=== PATIENT | male | born 1970 | race Two or more races ===

== ENCOUNTER 2019-03-29 11:24 | Emergency (ER) | payer OTHER ==
[~2019-03-29] VITALS: Ht 175.3 cm; Wt 103.9 kg
[2019-03-29 11:28] VITALS: BP 139/78
== END 2019-03-29 11:42 | disposition home or self-care (01) ==
LOC: ER 11:25
DX: L03.116 Cellulitis of left lower limb (principal); L03.115 Cellulitis of right lower limb; F12.10 Cannabis abuse, uncomplicated
CPT/HCPCS: 82962-TC

== ENCOUNTER 2019-04-29 14:49 | Inpatient (IN) | payer OTHER ==
[~2019-04-29] VITALS: Ht 175.3 cm; Wt 104.3 kg
[2019-04-29] MEDS ORDERED: IV NS 0.9% 1,000 ML BAG IV ONE (16:00)
[2019-04-29] MEDS ORDERED: ACETAMINOPHEN 325 MG TABLET PO ONE (16:00)
[2019-04-29] MEDS ORDERED: ACETAMINOPHEN ES 500 MG TABLET ONE (16:06)
--- NOTE | 2019-04-29 16:25 | NUR ---
"Pain on Right leg xcouple days worse now. Body ache/fever". PT AAOX4, VSS. RR EVEN & UNLABORED. DENIES CP, SOB, DIZZINESS, N/V, WEAKNESS @ THIS TIME. PT SEEN & EVAL'D BY DR. AGUILAR. MEDICATED ORDERED. WILL CONT TO MONITOR.
[2019-04-29] MEDS ORDERED: MORPHINE SULFATE INJ 2 MG/ML DISP.SYRIN IV ONE (16:30)
[2019-04-29] MEDS ORDERED: VANCOMYCIN HCL 1 GM in IV D5W 260 ML IV ONE (16:30)
[2019-04-29 16:44] LABS: BASOPHILS % (AUTO) 0.1 % (0.0-2.0); HEMATOCRIT 45 % (39-51); HEMOGLOBIN 15.2 g/dL (13.5-17.5); LYMPHOCYTES # (AUTO) 1.1 /CMM (0.8-4.8); LYMPHOCYTES % (AUTO) 4.2 % (20.0-44.0); MEAN CORPUSCULAR HGB CONC 34 g/dl (31.0-36.0); MEAN CORPUSCULAR VOLUME 93 fL (80-96); MONOCYTES # (AUTO) 1.9 /CMM (0.1-1.30); MONOCYTES % (AUTO) 7.1 % (2.0-12.0); NEUTROPHILS # (AUTO) 24.1 /CMM (1.8-8.9); NEUTROPHILS % (AUTO) 88.6 % (43.0-81.0); PLATELET COUNT (AUTO) 401 /CMM (150-450); RED BLOOD CELL COUNT(AUTO) 4.87 MIL/uL (4.5-6.0); WHITE BLOOD COUNT (AUTO) 27.2 K/uL (4.3-11.0)
--- NOTE | 2019-04-29 16:56 | NUR ---
CALLED [facility].
[2019-04-29 16:58] LABS: CALCIUM, SERUM 8.6 mg/dL (8.5-10.1); CREATININE 1.2 mg/dL (0.6-1.3); POTASSIUM 3.8 mmol/L (3.5-5.1)
[2019-04-29] MEDS ORDERED: FURO-145 PO (17:13)
[2019-04-29] MEDS ORDERED: SPIR25TA PO (17:13)
[2019-04-29] MEDS ORDERED: MORPHINE SULFATE INJ 4 MG/ML DISP.SYRIN ONE (17:42)
--- NOTE | 2019-04-29 17:45 | NUR ---
MEDICATED FOR PAIN PER ERMD ORDER, PT STEFANIE WELL.
--- NOTE | 2019-04-29 17:53 | NUR ---
NURSING SUP GAVE [phone].
[2019-04-29] MEDS ORDERED: MAG HYDROX/AL HYDROX/SIMETH 30 ML UDC PO PRN (18:00)
[2019-04-29] MEDS ORDERED: Z GUARD REMEDY 2 OZ OINT TP PRN (18:00)
[2019-04-29] MEDS ORDERED: MAGNESIUM HYDROXIDE 30 ML UDC PO PRN (18:00)
[2019-04-29] MEDS ORDERED: ZOLPIDEM TARTRATE 5 MG TABLET PO PRN (18:00)
[2019-04-29] MEDS ORDERED: ACETAMINOPHEN 325 MG TABLET PO PRN (18:00)
[2019-04-29] MEDS ORDERED: ONDANSETRON HCL/PF 4 MG/2 ML VIAL IVP PRN (18:00)
--- NOTE | 2019-04-29 18:04 | NUR ---
NURSING SUP GAVE [phone].
[2019-04-29] MEDS ORDERED: FEE PK DOSING 1 MIN EA MC ONE (18:37)
--- NOTE | 2019-04-29 19:18 | NUR ---
REPORT GIVEN TO VIKAS COBB FOR ROBI.
[2019-04-29 19:30] VITALS: BP 104/66
--- NOTE | 2019-04-29 19:40 | NUR ---
GENERAL ASSISTANTHEBREW PROFESSOR NOTES RECEIVED REPORT FROM JORDYN BEAN AT 1910. PATIENT TRANSFERRED FROM ER VIA [facility]URYEA AT 1930. A/O X 4. PATIENT ABLE TO VERBALIZE NEEDS. ON ROOM AIR. TELE MONITOR READING SINUS TACH, HEART RATE 101. RIGHT LEG SWOLLEN, NON-PITTING, PICTURES TAKEN AND PLACED IN CHART. BELONGINGS LIST SIGNED AND PLACED IN CHART. PATIENT STATES THAT HE DOES NOT TAKE ANY HOME MEDS. IV PRESENT ON RIGHT FOREARM, SIZE 20, INTACT & PATENT. VITAL SIGNS - BP: 104/66 HR: 98 RR: 20 TEMP: 98.2 SPO2: 99. BED LOCKED, SEMI-FAJARDO'S POSITION, SIDE RAILS X2, CALL LIGHT WITHIN REACH. WILL CONTINUE TO MONITOR.
[2019-04-29 20:00] VITALS: BP 104/66
[2019-04-29] MEDS: CEFTRIAXONE 1 G in IV D5W 50 ML IV SCH (21:16)
[2019-04-29] MEDS: ENOXAPARIN SODIUM 40 MG/0.4 ML DISP.SYRIN SQ SCH (21:34)
[2019-04-29 23:50] VITALS: BP 117/67
[2019-04-29] MEDS: HYDROCODONE/APAP 5/325MG 1 EACH TABLET PO PRN (23:50)
--- NOTE | 2019-04-29 23:50 | NUR ---
DAY WORKER NOTES PATIENT COMPLAINING OF RIGHT LEG PAIN RATED 5/10. PER PATIENT'S REQUEST, ADMINISTERED 1 TAB OF NORCO 5/325. VITAL SIGNS - BP: 117/67 HR: 101 RR: 20. CALL LIGHT WITHIN REACH. WILL CONTINUE TO MONITOR.
[2019-04-30] VITALS (7 sets, daily range): BP systolic 106–131; BP diastolic 56–78
[2019-04-30] MEDS: MORPHINE SULFATE INJ 2 MG/ML DISP.SYRIN IV PRN (04:33)
[2019-04-30] MEDS: VANCOMYCIN 1.25 GM in IV D5W 250 ML IV SCH ×2 (06:05→17:46)
--- NOTE | 2019-04-30 06:38 | NUR ---
DOLL SURGEON CLOSING NOTES PATIENT SLEEPING IN BED, EASY TO AWAKEN. A/O X4. ON ROOM AIR. NO S/S OF ACUTE RESPIRATORY DISTRESS AND NO COMPLAINTS OF PAIN AT THIS TIME. TELE MONITOR READING SINUS RHYTHM, HEART RATE 98. IV PRESENT ON RIGHT FOREARM, SIZE 20, INTACT & PATENT WITH IVPB ZANCOMYCIN RUNNING AT 125ML/HR. BED LOCKED, SEMI-FAJARDO'S POSITION, SIDE RAILS X2, CALL LIGHT WITHIN REACH. WILL ENDORSE TO DAY SHIFT NURSE TO FOLLOW PLAN OF CARE.
--- NOTE | 2019-04-30 07:00 | NUR ---
Tele/RN Opening Note Received patient in bed, AO x 4, able to responds all stimuli. Pt. does no appears pain or any discomfort. Skin is warm to touch, clean/dry. Kept lower bed of position with elevated HOB. No s/s of respiratory distress. Will continue to monitor.
[2019-04-30 07:19] LABS: BASOPHILS % (AUTO) 0.2 % (0.0-2.0); EOSINOPHILS % (AUTO) 0.2 % (0.0-6.0); HEMATOCRIT 42 % (39-51); HEMOGLOBIN 14.2 g/dL (13.5-17.5); LYMPHOCYTES # (AUTO) 1.4 /CMM (0.8-4.8); LYMPHOCYTES % (AUTO) 8.5 % (20.0-44.0); MEAN CORPUSCULAR HGB CONC 34 g/dl (31.0-36.0); MEAN CORPUSCULAR VOLUME 92 fL (80-96); MONOCYTES # (AUTO) 2.2 /CMM (0.1-1.30); MONOCYTES % (AUTO) 13.4 % (2.0-12.0); NEUTROPHILS # (AUTO) 12.6 /CMM (1.8-8.9); NEUTROPHILS % (AUTO) 77.7 % (43.0-81.0); PLATELET COUNT (AUTO) 318 /CMM (150-450); RED BLOOD CELL COUNT(AUTO) 4.59 MIL/uL (4.5-6.0); WHITE BLOOD COUNT (AUTO) 16.2 K/uL (4.3-11.0)
[2019-04-30 07:47] LABS: ALBUMIN 2.6 g/dL (3.4-5.0); BILIRUBIN,TOTAL 1.2 mg/dL (0.2-1.0); CALCIUM, SERUM 8.3 mg/dL (8.5-10.1); CREATININE 1.1 mg/dL (0.6-1.3); MAGNESIUM 1.5 mg/dL (1.8-2.4); PHOSPHORUS 2.1 mg/dL (2.5-4.9); POTASSIUM 3.6 mmol/L (3.5-5.1)
[2019-04-30] MEDS ORDERED: K PHOS NEUTRAL 250 MG TABLET PO ONE (12:30)
[2019-04-30] MEDS: Magnesium 1GM/D5W 100ML PREMIX 100 ML IV SCH ×2 (12:48→15:56)
[2019-04-30] MEDS ORDERED: GUAIFENESIN/CODEINE 10 ML UDC PO PRN (13:30)
--- NOTE | 2019-04-30 18:30 | NUR ---
MS/RN Closing Note Patient in bed comfortably, noticed fever >100, given Tylenol and ice pack and decreased temp 99.6. No s/s of respiratory distress, kept lower bed position with elevated HOB. Skin is warm to touch, clean/dry, intact IV site. Call light within reach, will endorse maintenance supervisor 2nd shift.
[2019-04-30] MEDS: HYDROCODONE/APAP 5/325MG 1 EACH TABLET PO PRN (19:02)
--- NOTE | 2019-04-30 19:30 | NUR ---
MS RN OPENING NOTES PATIENT SLEEPING IN BED UPON ARRIVAL, EASY TO AWAKEN. A/O X 4. ON ROOM AIR. NO S/S OF SOB AND NO COMPLAINTS OF PAIN AT THIS TIME. IV PRESENT ON RIGHT FOREARM, SIZE 20, INTACT & PATENT. BED LOCKED, SIDE RAILS X2, CALL LIGHT WITHIN REACH. WILL CONTINUE TO MONITOR.
[2019-04-30] MEDS: ENOXAPARIN SODIUM 40 MG/0.4 ML DISP.SYRIN SQ SCH (20:33)
[2019-04-30] MEDS: CEFTRIAXONE 1 G in IV D5W 50 ML IV SCH (20:34)
[2019-05-01] MEDS: MORPHINE SULFATE INJ 2 MG/ML DISP.SYRIN IV PRN ×4 (03:47→18:04)
[2019-05-01] MEDS: VANCOMYCIN 1.25 GM in IV D5W 250 ML IV SCH ×2 (06:13→18:04)
[2019-05-01] MEDS: HYDROCODONE/APAP 5/325MG 1 EACH TABLET PO PRN ×2 (06:23→15:23)
--- NOTE | 2019-05-01 06:57 | NUR ---
MS RN CLOSING NOTES PATIENT AWAKE AND RESTING IN BED. A/O X4. ON ROOM AIR. NO S/S OF SOB. PATIENT RECEIVED PRN NORCO 5/325 AT 0623 FOR PAIN RATED 7/10. IV PRESENT ON RIGHT FOREARM, SIZE 20, INTACT & PATENT WITH IVPB VANCO RUNNING AT 125 CC/HR. BED LOCKED, SIDE RAILS X2, CALL LIGHT WITHIN REACH. WILL ENDORSE TO DAY SHIFT NURSE TO FOLLOW PLAN OF CARE.
--- NOTE | 2019-05-01 07:54 | NUR ---
MS/RN OPENING NOTES RECEIVED PATIENT AWAKE AND RESTING IN BED. A/O X4. ON ROOM AIR. NO S/S OF SOB. PATIENT COMPLAINED OF PAIN RATED 7/10. IV PRESENT ON RIGHT FOREARM, SIZE 20, INTACT & PATENT WITH IVPB VANCO RUNNING AT 125 CC/HR. BED IN LOWEST POSITION. BED LOCKED, SIDE RAILS UP X2, CALL LIGHT WITHIN REACH. WILL CONTINUE TO MONITOR.
[2019-05-01 08:00] VITALS: BP 115/70
[2019-05-01 09:41] LABS: ALBUMIN 2.5 g/dL (3.4-5.0); BILIRUBIN,DIRECT 0.2 mg/dL (0.0-0.2); BILIRUBIN,TOTAL 0.6 mg/dL (0.2-1.0); TOTAL PROTEIN, SERUM 7.4 g/dL (6.4-8.2)
[2019-05-01 09:56] LABS: CALCIUM, SERUM 8.5 mg/dL (8.5-10.1); MAGNESIUM 2.1 mg/dL (1.8-2.4); PHOSPHORUS 3.2 mg/dL (2.5-4.9); POTASSIUM 3.8 mmol/L (3.5-5.1)
--- NOTE | 2019-05-01 15:52 | NUR ---
MS/RN NOTES PER PT FWW ON DISCHARGE.
[2019-05-01 16:00] VITALS: BP 111/59
--- NOTE | 2019-05-01 18:57 | NUR ---
MS/RN CLOSING NOTES PATIENT IS ALERT AND ORIENTED X4. NO RESPIRATORY DISTRESS AT THIS TIME. STILL ON IN OFF OF PAIN X6. KEPT PATIENT CLEAN AND DRY THE WHOLE TIME. SEEN AND EXAMINED BY MD WITH ORDERS AND CARRIED OUT. BED IN LOWEST POSITION, SIDE RAILS UP X2. CALL LIGHTS WITHIN REACH. PT EVAL WAS DONE AND RECOMMEND FOR FWW ON DISCHARGE AND NOTED. WILL ENDORSED TO DISASTER RECOVERY COORDINATOR FOR CONTINUITY OF CARE.
[2019-05-01 20:00] VITALS: BP 147/89
[2019-05-01] MEDS: CEFTRIAXONE 1 G in IV D5W 50 ML IV SCH (20:16)
--- NOTE | 2019-05-01 20:40 | NUR ---
MS/RN OPENING NOTES RECEIVED PATIENT ASLEEP, BUT EASILY AROUSES, PAIN MEDICATION GIVEN PRIOR TO START OF CARE BY AM RN, PATIENT ABLE TO VERBALIZE NEEDS, ON ROOM AIR, RESPIRATIONS EVEN AND UNLABORED, BED LOCKED, CALL LIGHTS WITHIN REACH , IV ON RFA IV PATENT, WILL MONITOR FOR ANY CHANGES. BED LOCKED, CALL LIGHTS WITHIN REACH. WILL MONITOR.
[2019-05-01] MEDS: ENOXAPARIN SODIUM 40 MG/0.4 ML DISP.SYRIN SQ SCH (23:01)
[2019-05-02] MEDS: VANCOMYCIN 1.25 GM in IV D5W 250 ML IV SCH ×2 (05:00→17:31)
[2019-05-02] MEDS: MORPHINE SULFATE INJ 2 MG/ML DISP.SYRIN IV PRN ×3 (05:41→19:58)
--- NOTE | 2019-05-02 05:44 | NUR ---
ms/rn notes PAIN GENERALIZED ON BODY WITH SEVERE PAIN, MOANING AND GRINACE, NEEDED MORPHINE IV 2 MG GIVEN. MONITORING RELIEF.
--- NOTE | 2019-05-02 06:55 | NUR ---
324MS/RN NOTES CLOSING NOTED PATIEMT ABLE TO SLEEP, BED LOCKED,, ABLE TO REPOSITION BRIAN, SELF MOTIVATED. WILL ENDORSE TO AM RN FOR ROBI.
[2019-05-02 08:00] VITALS: BP 146/90
--- NOTE | 2019-05-02 08:00 | NUR ---
MS/RN Patient received Patient received from mobility manager. Sleeping soundly at this time, appears in no distress or discomfort. Right leg elevated on pillows to help relieve swelling. Call light within reach, will continue to monitor and ensure safety.
[2019-05-02 08:20] LABS: CALCIUM, SERUM 8.1 mg/dL (8.5-10.1); CREATININE 0.9 mg/dL (0.6-1.3); POTASSIUM 3.7 mmol/L (3.5-5.1)
--- NOTE | 2019-05-02 09:08 | NUR ---
MS/ RN S/B Dr Cobos Seen by MD - for discharge tomorrow with prescription for oral antibiotics.
[2019-05-02 09:13] LABS: BASOPHILS % (AUTO) 0.3 % (0.0-2.0); EOSINOPHILS % (AUTO) 1.9 % (0.0-6.0); HEMATOCRIT 42 % (39-51); HEMOGLOBIN 14.4 g/dL (13.5-17.5); LYMPHOCYTES # (AUTO) 1.5 /CMM (0.8-4.8); LYMPHOCYTES % (AUTO) 14.6 % (20.0-44.0); MEAN CORPUSCULAR HGB CONC 34 g/dl (31.0-36.0); MEAN CORPUSCULAR VOLUME 92 fL (80-96); MONOCYTES # (AUTO) 1.3 /CMM (0.1-1.30); MONOCYTES % (AUTO) 12.3 % (2.0-12.0); NEUTROPHILS # (AUTO) 7.5 /CMM (1.8-8.9); NEUTROPHILS % (AUTO) 70.9 % (43.0-81.0); PLATELET COUNT (AUTO) 395 /CMM (150-450); WHITE BLOOD COUNT (AUTO) 10.5 K/uL (4.3-11.0)
--- NOTE | 2019-05-02 12:30 | NUR ---
MS/RN Diet Per patient request, diet has been changed to double portions.
--- NOTE | 2019-05-02 14:45 | NUR ---
MS/RN Pain Complaining of pain 7/10 to bilateral lower extremities, morphine 2mg administered as ordered. Will monitor effectiveness.
[2019-05-02 16:00] VITALS: BP_SYST 105; BP_SYST 140; BP_DIAS 60; BP_DIAS 63
--- NOTE | 2019-05-02 18:00 | NUR ---
MS/RN Vancomycin Vancomycin hung as ordered, no level due
--- NOTE | 2019-05-02 18:07 | NUR ---
MS/RN End note Patient remains in stable condition. No new concerns at this time. All needs attended, will endorse to assembler 1st shift.
[2019-05-02 20:00] VITALS: BP 145/83
--- NOTE | 2019-05-02 20:00 | NUR ---
MS/RN OPENING NOTES RECEIVED PATIENT IN BED, AWAKE, ALERT X3, REPORTED SEVERE PAIN IN BILATERAL LOWER ANKLES OF 7/110, RESPIRATIONS EVEN AND UNLABORED, SKIN WARM TO TOUCH, ABLE TO VERBALIZE NEEDS, USES URINAL. WITH WALKER. BED LOCKED .CALL LIGHTS WITHIN REACH, IV P MORPHINE 2 MG ADMINISTERED WILL MONITOR RELIEF. PROVIDE COMFORT MEASURES.
[2019-05-02] MEDS: CEFTRIAXONE 1 G in IV D5W 50 ML IV SCH (20:03)
[2019-05-02] MEDS: ENOXAPARIN SODIUM 40 MG/0.4 ML DISP.SYRIN SQ SCH (22:27)
--- NOTE | 2019-05-02 22:32 | NUR ---
ms/rn notes PATIENT STILL IN PAIN FOR BREAK THROUGH PAIN REQUESTING NORCO PO.
[2019-05-02] MEDS: HYDROCODONE/APAP 5/325MG 1 EACH TABLET PO PRN (22:35)
--- NOTE | 2019-05-02 23:39 | NUR ---
ms/rn PATIENT WITH UPSET STOMACH REQUESTING MAALOX.
--- NOTE | 2019-05-02 23:40 | NUR ---
MS/RN NOTES REPORT GIVEN TO CHARGE NURSE GENARO FOR ROBI.
--- NOTE | 2019-05-03 01:30 | NUR ---
MSRN NO FURTHER COMPLAINTS MADE WENT BACK TO SLEEP. KEPT COMFORTABLE.
[2019-05-03] MEDS: VANCOMYCIN 1.25 GM in IV D5W 250 ML IV SCH (05:54)
--- NOTE | 2019-05-03 06:47 | NUR ---
MSRN REMAINS STABLE, ALL NEEDS ATTENDED.
--- NOTE | 2019-05-03 07:53 | NUR ---
MS RN OPENING NOTES RECEIVED PATIENT IN BED, ASLEEP. PATIENT ON ROOM AIR BREATHING EVENLY WITH NO SIGNS OF DISTRESS OR SOB. LFA SL GAUGE # 22 PRESENT, INTACT AND FLUSHING WELL. SAFETY PRECAUTIONS IN PLACE: BED IN LOW POSITION AND LOCKED, RAILS UP X2, CALL LIGHT WITHIN REACH. WILL CONTINUE TO MONITOR PATIENT.
[2019-05-03 08:00] VITALS: BP 123/71
[2019-05-03 08:36] LABS: CALCIUM, SERUM 8.5 mg/dL (8.5-10.1)
[2019-05-03] MEDS ORDERED: CLIN300C11 PO (09:49)
--- NOTE | 2019-05-03 10:05 | NUR ---
WOUND CARE CONSULT: PT PRESENTS WITH VERY RED LOWER LEGS WITH SCABS, PRESENT ON ADMISSION. PT STATES THAT HE BURNED HIS LEGS BUT HE WOULD NOT OPEN HIS EYES. RECOMMEND DPM CONSULT. PT IS CONTINENT AND INDEPENDENT WITH BED MOBILITY AT THIS TIME. WILL SEE PRN. BARNES IN AGREEMENT WITH PLAN OF CARE. CURRENT HENIR SCORE IS 19. Addendum: 05/03/19 at 1007 by EDITH BRAUN WNDNU Amended: Links added.
[2019-05-03] MEDS ORDERED: INFLUENZA VACCINE 2019-20 0.5 ML DISP.SYRIN IM ONE (13:00)
--- NOTE | 2019-05-03 18:54 | NUR ---
MS ASSISTANT TO THE CEO NOTES PATIENT DISCHARGED HOME AT LEFT THE UNIT AT 1530 ACCOMPANIED BY HIS MOTHER. PATIENT IN MEDICALLY STABLE CONDITION WITH DISCHARGE ORDERS AND DISCHARGE PAPERS. TEACHING REGARDING HIS CONDITION AND REGARDING DISCHARGE ORDERS AND F/U APPOINTMENTS PROVIDED TO BOTH; PATIENT AND MOTHER. BOTH VERBALIZED UNDERSTANDING. VALUABLE FORM AND DISCHARGE PAPERS SIGNED BY THE PATIENT. IV LINE AND WRIST BAND REMOVED BEFORE PATIENT LEFT THE FLOOR. PATIENT LEFT THE FLOOR VIA WHEELCHAIR ACCOMPANIED BY INSTRUCTIONAL TECHNOLOGIST.
[2019-05-04] MEDS ORDERED: SILVER SULFADIAZINE 50 GM JAR TP SCH (09:00)
== END 2019-05-03 16:00 | disposition home health service (06) | DRG 720 ==
LOC: ER 14:50 → MEDSG2 17:57 → TELE 19:48 → MED 04-30 09:25
PROVIDERS: ADMIT Internal Medicine; ATTEND Internal Medicine
DX: A41.9 Sepsis, unspecified organism (principal); J96.01 Acute respiratory failure with hypoxia; T24.301A Burn of third degree of unspecified site of right lower limb, except ankle and foot, initial encounter; T24.302A Burn of third degree of unspecified site of left lower limb, except ankle and foot, initial encounter; L03.115 Cellulitis of right lower limb; R65.20 Severe sepsis without septic shock; I10 Essential (primary) hypertension; R74.0 Nonspecific elevation of levels of transaminase and lactic acid dehydrogenase [LDH]; X08.8XXA Exposure to other specified smoke, fire and flames, initial encounter; Y93.9 Activity, unspecified; Y92.009 Unspecified place in unspecified non-institutional (private) residence as the place of occurrence of the external cause; M79.661 Pain in right lower leg
CPT/HCPCS: 36415; 71045-TC; 76700-TC; 80048-TC; 80053-TC; 80076-TC; 80202-TC; 83605-TC; 83735-TC; 84100-TC; 85025-TC; 87040-TC; 87081-TC; 93971-TC; 97116-TC; 97530-TC; G0378; J0696; J1650; J2270; J3370; J3475; J7040; J7050; J7060; Q2036

== ENCOUNTER 2020-11-26 15:08 | Emergency (ER) | payer OTHER ==
[~2020-11-26] VITALS: Ht 175.3 cm; Wt 104.3 kg
[~2020-11-26 15:08] MED LIST: CLIN300C12 PO; FURO-145 PO; SPIR25TA PO
--- NOTE | 2020-11-26 15:16 | NUR ---
BIBMOTHER FROM HOME TO ER BED 6. AAOX4. NOT IN RESP DISTRESS. CAME IN FOR L LOWER LEG PAIN, SWELLING, REDNESS WHICH PT THINKS THAT HE MIGHT HAVE BEEN BITTEN BY AN INSECT. SITE IS NOTED WARM TO TOUCH. PAIN IS RATED 10/10. PROVIDER WAS AT THE BEDSIDE FOR EVAL.
--- NOTE | 2020-11-26 15:42 | NUR ---
LAB AND US AT BEDSIDE
[2020-11-26 15:55] LABS: BASOPHILS % (AUTO) 0.3 % (0.0-2.0)
[2020-11-26 15:59] LABS: EOSINOPHILS % (AUTO) 2.1 % (0.0-6.0); HEMATOCRIT 47 % (39-51); LYMPHOCYTES # (AUTO) 1.1 K/uL (0.8-4.8); LYMPHOCYTES % (AUTO) 9.2 % (20.0-44.0); MEAN CORPUSCULAR HGB CONC 34 g/dl (31.0-36.0); MEAN CORPUSCULAR VOLUME 93 fL (80-96); MONOCYTES # (AUTO) 0.8 K/uL (0.1-1.30); MONOCYTES % (AUTO) 7.4 % (2.0-12.0); NEUTROPHILS # (AUTO) 9.2 K/uL (1.8-8.9); WHITE BLOOD COUNT (AUTO) 11.4 K/uL (4.3-11.0)
[2020-11-26] MEDS ORDERED: CLIN300C12 PO (16:29)
[2020-11-26] MEDS ORDERED: KETOROLAC TROMETHAMINE INJ 30 MG/ML VIAL IM ONE (16:30)
[2020-11-26] MEDS ORDERED: KETOROLAC TROMETHAMINE INJ 30 MG/ML VIAL ONE (16:41)
[2020-11-26] MEDS ORDERED: SULF1TAB48 PO ×2 (16:46)
[2020-11-26] MEDS ORDERED: CEPH500T PO (16:46)
[2020-11-26 16:52] LABS: PLATELET COUNT (AUTO) 12 K/uL (150-450)
[2020-11-26 17:03] LABS: BAND % (MANUAL) 1 % (0.0-5.0); EOSINOPHILS % (MANUAL) 1 % (0-4); LYMPHOCYTES % (MANUAL) 14 % (16-48); MONOCYTES % (MANUAL) 5 % (0-11.0); NEUTROPHILS % (MANUAL) 79 (42-76)
[2020-11-26] MEDS ORDERED: POLY15DR40 EACHEYE (17:40)
[2020-11-26 18:40] LABS: CALCIUM, SERUM 8.6 mg/dL (8.5-10.1); CARBON DIOXIDE 21 mmol/L (21-32); CHLORIDE 102 mmol/L (98-107); CREATININE 1.1 mg/dL (0.6-1.3); GLUCOSE 113 mg/dL (74-106); POTASSIUM 3.5 mmol/L (3.5-5.1); SODIUM SERUM 139 mmol/L (136-145); UREA NITROGEN, BLOOD 8 mg/dL (7-18)
--- NOTE | 2020-11-26 18:49 | NUR ---
WHILE INSERTING PT'S IV LINE. PT IS NOTED HOT TO TOUCH. CHECK TEMP. ORAL TEMP 101.6. PROVIDER MADE AWARE. ORDERS RECEIVED
[2020-11-26] MEDS ORDERED: CEFTRIAXONE 1GM BAG (ER ONLY) 50 ML IV ONE (18:54)
[2020-11-26] MEDS ORDERED: ACETAMINOPHEN ES 500 MG TABLET ONE (18:55)
[2020-11-26] MEDS ORDERED: IV NS 0.9% 1,000 ML BAG IV ONE (19:00)
[2020-11-26] MEDS ORDERED: IV NS 0.9% 1,000 ML IV ONE (19:00)
[2020-11-26] MEDS ORDERED: VANCOMYCIN HCL 1 GM in IV D5W 260 ML IV ONE (19:00)
[2020-11-26] MEDS ORDERED: ACETAMINOPHEN 325 MG TABLET PO ONE (19:00)
[2020-11-26] MEDS ORDERED: CEFTRIAXONE 1 G in IV D5W 50 ML IV ONE (19:00)
--- NOTE | 2020-11-26 19:07 | NUR ---
AWAITING AUTH FROM INSURANCE
--- NOTE | 2020-11-26 19:24 | NUR ---
AWAITING ACCEPTANCE FROM [facility].
[2020-11-26] MEDS ORDERED: ONDANSETRON HCL/PF 4 MG/2 ML VIAL IV ONE (20:00)
[2020-11-26] MEDS ORDERED: MORPHINE SULFATE INJ 2 MG/ML DISP.SYRIN IV ONE (20:00)
[2020-11-26] MEDS ORDERED: MORPHINE SULFATE INJ 4 MG/ML DISP.SYRIN ONE (20:51)
[2020-11-26] MEDS ORDERED: ONDANSETRON HCL/PF 4 MG/2 ML VIAL ONE (20:51)
--- NOTE | 2020-11-26 22:23 | NUR ---
pt in bed sleeping. nad noted
--- NOTE | 2020-11-26 22:50 | NUR ---
PT ACCEPTED AT [facility] ACCEPTING MD THURMAN PT WILL GOT O ROOM [phone] PHONE NUMBER FOR REPORT
--- NOTE | 2020-11-26 22:54 | NUR ---
Shlomo palencia in [facility] - 11/26/20 at 2312 by SAQIB [facility] CALLED FOR TRANSPORT, ETA 60-90MIN.
--- NOTE | 2020-11-26 23:00 | NUR ---
REPORT GIVEN TO VIKAS BERMAN FOR AT [facility]
--- NOTE | 2020-11-26 23:28 | NUR ---
SPOKE TO DC (SHADOWGRAPH SCALE OPERATOR) STATES WILL CALL BACK WITH TRANSFER INFO.
--- NOTE | 2020-11-27 00:48 | NUR ---
STILL AWAITING TRANSPORT INFO FROM SPECIAL MACHINE OPERATOR TO TRANSFER PT.
--- NOTE | 2020-11-27 01:46 | NUR ---
STILL AWAITING TRANSPORT INFO FROM [employer] OPERATOR TO TRANSFER PT.
--- NOTE | 2020-11-27 01:49 | NUR ---
SPOKE WITH [employer] FROM 'S INSURANCE. AUTH# [id number]
--- NOTE | 2020-11-27 01:51 | NUR ---
[facility] CALLED FOR TRANSPORT, ETA 60MIN.
[2020-11-27 02:32] VITALS: BP 130/86
--- NOTE | 2020-11-27 03:14 | NUR ---
TRANSPORT AT BEDSIDE REPORT GIVEN TO EMT.
== END 2020-11-27 03:21 | disposition short-term general hospital (02) ==
LOC: ER 15:16
DX: A41.9 Sepsis, unspecified organism (principal); L03.116 Cellulitis of left lower limb; R00.0 Tachycardia, unspecified; D69.6 Thrombocytopenia, unspecified; Z20.822 Contact with and (suspected) exposure to COVID-19; S80.862A Insect bite (nonvenomous), left lower leg, initial encounter; W57.XXXA Bitten or stung by nonvenomous insect and other nonvenomous arthropods, initial encounter; Y92.89 Other specified places as the place of occurrence of the external cause; Z59.0 Homelessness
CPT/HCPCS: 36415; 71045; 80048; 83605; 84145; 84484; 85007; 85025; 85730; 87040 ×2; 87081; 87426; 93005; 93971; 96360; 96361; 96365; 96367; 96372; 96375; 99291; C9803; J0696; J1885; J2270; J2405; J7030; J7040; J7060